=== PATIENT | female | born 1955 | race Caucasian/White ===

== ENCOUNTER → 2024-07-16 12:45 | Outpatient (REF) | payer MEDICARE, OTHER, SELFPAY | LOC: HWWDC 12:45 | PROVIDERS: ATTENDING PHYSICIAN Nurse Practitioner Family | DX: Z12.31 Encounter for screening mammogram for malignant neoplasm of breast (principal) | CPT/HCPCS: 77063; 77067 ==

== ENCOUNTER → 2025-04-11 13:35 | Outpatient (REF) | payer MEDICARE, OTHER, SELFPAY | LOC: RCS 13:35 | PROVIDERS: ATTENDING PHYSICIAN Nurse Practitioner Family | DX: I77.810 Thoracic aortic ectasia (principal) | CPT/HCPCS: 93306 ==